=== PATIENT | male | born 1940 | race Caucasian/White ===

== ENCOUNTER 2019-07-30 15:22 | Inpatient (IN) | payer MEDICARE ==
[~2019-07-30] VITALS: Ht 180.3 cm; Wt 89.8 kg
--- NOTE | 2019-07-30 15:36 | NUR ---
PT IS IN ROOM #1B. DR STAFFORD EVALUATED THE PT. SUICIDAL PT PROTOCOL STARTED .
[2019-07-30 16:13] LABS: BASOPHILS % (AUTO) 0.6 % (0.0-2.0); EOSINOPHILS % (AUTO) 0.4 % (0.0-7.0); HEMATOCRIT 39.7 % (36.7-47.1); HEMOGLOBIN 13.4 g/dL (12.5-16.3); LYMPHOCYTES % (AUTO) 12.5 % (20.5-51.5); MEAN CORPUSCULAR HEMOGLOBIN 31.8 uug (23.8-33.4); MEAN CORPUSCULAR HGB CONC 34 g/dL (32.5-36.3); MEAN CORPUSCULAR VOLUME 93.8 fL (73.0-96.2); MONOCYTES # (AUTO) 0.7 K/uL (2.0-10.0); MONOCYTES % (AUTO) 8.7 % (0.0-11.0); NEUTROPHILS # (AUTO) 5.9 K/uL (1.8-8.9); NEUTROPHILS % (AUTO) 77.8 % (38.5-71.5); PLATELET COUNT (AUTO) 214 K/uL (152-348); RED BLOOD CELL COUNT(AUTO) 4.23 MIL/uL (4.06-5.63); WHITE BLOOD COUNT (AUTO) 7.6 K/uL (3.6-10.2)
[2019-07-30 16:21] LABS: CARBON DIOXIDE 29 mmol/L (21-32); CHLORIDE 106 mmol/L (98-107); CREATININE 1.4 mg/dL (0.6-1.3); GLUCOSE 176 mg/dL (74-106); POTASSIUM 3.8 mmol/L (3.5-5.1); UREA NITROGEN, BLOOD 23 mg/dL (7-18)
[2019-07-30 16:32] LABS: ETHANOL < 3 MG/DL (0-0)
[2019-07-30 16:36] LABS: BILIRUBIN,TOTAL 0.5 mg/dL (0.2-1.0)
[2019-07-30 16:37] LABS: ALANINE AMINOTRANSFERASE 30 U/L (16-63); ALKALINE PHOSPHATASE 116 U/L (50-136); ASPARTATE AMINOTRANSFERASE 22 U/L (15-37); TOTAL PROTEIN, SERUM 6.8 g/dL (6.4-8.2)
--- NOTE | 2019-07-30 16:43 | NUR ---
PT IS RESTING IN BED COMFORTABLY. NO S/S OF ACUTE DISTRESS AT THIS TIME. PT'S SON AT THE BEDSIDE. CONTINUE TO MONITOR THE PT.
[2019-07-30] MEDS ORDERED: GABAPENTIN 100 MG CAPSULE PO ONE (16:45)
[2019-07-30] MEDS ORDERED: GABAPENTIN 100 MG CAPSULE ONE (16:54)
[2019-07-30 16:57] LABS: THYROID STIMULATING HORMONE 1.137 mIU/mL (0.358-3.740)
[2019-07-30 17:49] LABS: BILIRUBIN,DIRECT < 0.1 mg/dL (0.0-0.2)
--- NOTE | 2019-07-30 18:02 | NUR ---
CALLED [facility] FOR PSYCH EVAL.
[2019-07-30 19:00] LABS: *BILIRUBIN,URIN NEGATIVE (NEGATIVE); *BLOOD, URINE NEGATIVE (NEGATIVE); *CLARITY,URINE CLEAR (CLEAR); *COLOR,URINE YELLOW (YELLOW); *KETONES,URINE NEGATIVE (NEGATIVE); *UROBILINOGEN,URINE 0.2 E.U./dl (NORMAL); LEUKOCYTE ESTERASE ,URINE NEGATIVE (NEGATIVE); NITRITE, URINE NEGATIVE (NEGATIVE); PH,URINE 8.5 (5.0-8.0); UGLUCOSE NEGATIVE (NEGATIVE)
--- NOTE | 2019-07-30 19:10 | NUR ---
Gladis Bravo arrived to ER for pt psych eval.
[2019-07-30 19:24] LABS: *AMPHETAMINE, URINE NEGATIVE (NEGATIVE); *BARBITURATE, URINE NEGATIVE (NEGATIVE); *CANNABINOID, URINE NEGATIVE (NEGATIVE); *COCCAINE, URINE NEGATIVE (NEGATIVE); *OPIATE, URINE NEGATIVE (NEGATIVE); *PHENCYCLIDINE SCREEN,URINE NEGATIVE (NEGATIVE)
--- NOTE | 2019-07-30 20:02 | NUR ---
Report given to Fadia ADAN MHU.
[2019-07-30] MEDS ORDERED: ACETAMINOPHEN 325 MG TABLET PO PRN (20:15)
[2019-07-30] MEDS ORDERED: MAG HYDROX/AL HYDROX/SIMETH 30 ML LIQUID UDC PO PRN (20:15)
[2019-07-30] MEDS ORDERED: BLOOD SUGAR DIAGNOSTIC 1 EACH STRIP VI ONE ×2 (20:15→20:30)
[2019-07-30] MEDS ORDERED: MAGNESIUM HYDROXIDE 30 ML LIQUID UDC PO PRN (20:15)
[2019-07-30 20:30] VITALS: BP 161/86
[2019-07-30] MEDS: TEMAZEPAM 7.5 MG CAPSULE PO PRN (21:46)
--- NOTE | 2019-07-30 22:00 | NUR ---
GPS: Admitted to unit voluntarily earlier a 79 yr.old male under the care of /Russell Riggs who was medically cleared in the E.R. Pt.is A/Ox4,coming in for anxiety,depression with suicidal ideation. Contracts for safety at this time. Unable to say stressors at this time. Personal belongings/skin assessment completed. Pt.is sad,anxious,depressed. Re-assured by staff prn. Pt's son "Alex" made aware of pt's admission to the unit with pt's consent. Pt's handbook given,unit rules explained. Safety emphasized.Restoril 7.5mg given as requested by pt.for insomnia. Will continue to monitor.
[2019-07-31 07:04] LABS: BILIRUBIN,TOTAL 0.6 mg/dL (0.2-1.0); CREATININE 1.3 mg/dL (0.6-1.3); POTASSIUM 3.9 mmol/L (3.5-5.1); TOTAL PROTEIN, SERUM 5.9 g/dL (6.4-8.2)
[2019-07-31 07:30] VITALS: BP 123/68
[2019-07-31] MEDS ORDERED: METOPROLOL SUCCINATE XL 50 MG TAB.SR.24H PO SCH (09:00)
[2019-07-31] MEDS ORDERED: Medication Not On Formulary EA (Irbesartan (Avapro) 150 MG) PO SCH (09:00)
[2019-07-31] MEDS: METOPROLOL TARTRATE 50 MG TABLET PO SCH ×2 (09:22→20:35)
[2019-07-31] MEDS: AMLODIPINE 5 MG TABLET PO SCH (09:23)
[2019-07-31] MEDS: VALSARTAN 80 MG TABLET PO SCH (09:23)
[2019-07-31] MEDS: LORAZEPAM 1 MG TABLET PO PRN (10:54)
[2019-07-31 16:00] VITALS: BP 114/69
[2019-07-31] MEDS ORDERED: WARFARIN SODIUM 5 MG TABLET PO ONE (17:00)
[2019-07-31] MEDS ORDERED: WARFARIN SODIUM 5 MG TABLET PO SCH (17:00)
[2019-07-31 20:24] VITALS: BP 141/65
[2019-07-31] MEDS: MIRTAZAPINE 15 MG TABLET PO SCH (20:34)
[2019-07-31] MEDS: TAMSULOSIN HCL 0.4 MG CAP.SR.24H PO SCH (20:34)
[2019-07-31] MEDS: TEMAZEPAM 7.5 MG CAPSULE PO PRN (21:43)
--- NOTE | 2019-08-01 06:44 | NUR ---
Pt took all medications last night. Had restoril PRN. Slept 9.30 hrs.
[2019-08-01 07:30] VITALS: BP 112/54
[2019-08-01] MEDS: METOPROLOL TARTRATE 50 MG TABLET PO SCH ×2 (08:40→20:33)
[2019-08-01] MEDS: AMLODIPINE 5 MG TABLET PO SCH (08:40)
[2019-08-01] MEDS: buPROPion 75 MG TABLET PO SCH (08:40)
[2019-08-01] MEDS: VALSARTAN 80 MG TABLET PO SCH (08:41)
--- NOTE | 2019-08-01 09:37 | NUR ---
GPS/NSG IM ADMINISTERED ORDERED PER RIESE PROTOCOL ON RT DELTOID. WILL CONTINUE TO MONITOR FOR SEDATION WELL FOR ADVERSE REACTIONS. LAST OBSERVED LYING IN BED AWAKE.
[2019-08-01] MEDS: LORAZEPAM 1 MG TABLET PO PRN (11:07)
[2019-08-01 16:00] VITALS: BP 103/54
[2019-08-01] MEDS: WARFARIN SODIUM 5 MG TABLET PO SCH (16:54)
[2019-08-01 20:00] VITALS: BP 122/58
[2019-08-01] MEDS: MIRTAZAPINE 15 MG TABLET PO SCH (20:33)
[2019-08-01] MEDS: TAMSULOSIN HCL 0.4 MG CAP.SR.24H PO SCH (20:33)
[2019-08-01] MEDS: TEMAZEPAM 7.5 MG CAPSULE PO PRN (22:18)
[2019-08-02 07:30] VITALS: BP 114/53
[2019-08-02 07:58] LABS: EOSINOPHILS # (AUTO) 0.2 K/uL (0.0-0.7); LYMPHOCYTES # (AUTO) 1.4 K/uL (20.0-40.0); LYMPHOCYTES % (AUTO) 27.6 % (20.5-51.5); MEAN CORPUSCULAR HGB CONC 34 g/dL (32.5-36.3); MONOCYTES # (AUTO) 0.7 K/uL (2.0-10.0); NEUTROPHILS # (AUTO) 2.8 K/uL (1.8-8.9); RED BLOOD CELL COUNT(AUTO) 3.52 MIL/uL (4.06-5.63)
[2019-08-02 08:08] LABS: BASOPHILS % (AUTO) 0.6 % (0.0-2.0); EOSINOPHILS % (AUTO) 3.2 % (0.0-7.0); MEAN CORPUSCULAR HEMOGLOBIN 32.3 uug (23.8-33.4); NEUTROPHILS % (AUTO) 55.6 % (38.5-71.5)
[2019-08-02 08:09] LABS: HEMOGLOBIN 11.4 g/dL (12.5-16.3); WHITE BLOOD COUNT (AUTO) 5.1 K/uL (3.6-10.2)
[2019-08-02 08:10] LABS: HEMATOCRIT 33.1 % (36.7-47.1); PLATELET COUNT (AUTO) 156 K/uL (152-348)
[2019-08-02 08:15] LABS: CREATININE 1.2 mg/dL (0.6-1.3); MAGNESIUM 2.1 mg/dL (1.8-2.4); POTASSIUM 3.6 mmol/L (3.5-5.1)
[2019-08-02] MEDS: buPROPion 75 MG TABLET PO SCH (08:53)
[2019-08-02] MEDS: METOPROLOL TARTRATE 50 MG TABLET PO SCH ×2 (08:54→20:07)
[2019-08-02] MEDS: AMLODIPINE 5 MG TABLET PO SCH (08:54)
[2019-08-02] MEDS: VALSARTAN 80 MG TABLET PO SCH (08:54)
--- NOTE | 2019-08-02 10:19 | NUR ---
Social Work Initial Discharge Plan: Patient currently resides with his son Alex Capellan ([phone]) [address] [facility], [place] [address]. Patient has his own apartment in [place], [place] where he has been living on his own for 20 years. Patient ideally wants to go back to his own home. SW will continue to work with patient, family, and MD to ensure a safe and proper discharge plan.
[2019-08-02] MEDS: LORAZEPAM 1 MG TABLET PO PRN (10:43)
[2019-08-02 15:23] VITALS: BP 122/61
[2019-08-02] MEDS: WARFARIN SODIUM 5 MG TABLET PO SCH (17:03)
[2019-08-02 20:00] VITALS: BP 137/65
[2019-08-02] MEDS: TAMSULOSIN HCL 0.4 MG CAP.SR.24H PO SCH (20:04)
[2019-08-02] MEDS: MIRTAZAPINE 15 MG TABLET PO SCH (20:04)
[2019-08-02] MEDS: TEMAZEPAM 7.5 MG CAPSULE PO PRN (22:13)
[2019-08-03 07:55] VITALS: BP 136/52
[2019-08-03] MEDS: buPROPion 75 MG TABLET PO SCH (08:14)
[2019-08-03] MEDS: VALSARTAN 80 MG TABLET PO SCH (08:14)
[2019-08-03] MEDS: METOPROLOL TARTRATE 50 MG TABLET PO SCH ×2 (08:14→20:09)
[2019-08-03] MEDS: AMLODIPINE 5 MG TABLET PO SCH (08:15)
[2019-08-03] MEDS: LORAZEPAM 1 MG TABLET PO PRN (09:42)
--- NOTE | 2019-08-03 11:39 | NUR ---
Social Work Individual Therapy Note: SW met with patient and provided brief individual counseling. SW assessed patient for suicidal ideation. Patient denies suicidal thoughts but he admits to continue to feel depressed and having headaches. SW explored patient's feelings and provided guidance and reassurance. SW offered patient Intensive Outpatient program options for mental health individual and group counseling and psychiatry follow ups at [facility] ([phone]) and [facility] ([phone]). SW explained the benefits of each program and the patient was happy to know this resource is available for him. Patient would like to participate in the [facility] IOP since they provide transportation and he feels safer knowing this. SW will continue to meet with patient and provide ongoing support.
--- NOTE | 2019-08-03 11:52 | NUR ---
Social Work Coordination of Care: Collection Correspondent referred patient to [facility] spoke with Uzair Stevens ([phone]) and [facility] spoke with Simran ([phone]). Both programs offer psychiatry follow up, psychologist for individual and group therapy.
[2019-08-03 15:25] VITALS: BP 105/49
[2019-08-03] MEDS: WARFARIN SODIUM 5 MG TABLET PO SCH (17:07)
[2019-08-03 19:46] VITALS: BP 111/58
[2019-08-03] MEDS: TAMSULOSIN HCL 0.4 MG CAP.SR.24H PO SCH (20:09)
[2019-08-03] MEDS: NORTRIPTYLINE HCL 10 MG CAPSULE PO SCH (20:10)
[2019-08-03] MEDS: ATORVASTATIN 10 MG TABLET PO SCH (21:33)
[2019-08-04 07:30] VITALS: BP 106/50
[2019-08-04] MEDS: buPROPion 75 MG TABLET PO SCH (08:18)
[2019-08-04] MEDS: METOPROLOL TARTRATE 50 MG TABLET PO SCH ×2 (09:00→20:16)
[2019-08-04] MEDS: AMLODIPINE 5 MG TABLET PO SCH (09:00)
[2019-08-04] MEDS: VALSARTAN 80 MG TABLET PO SCH (09:00)
[2019-08-04] MEDS: LORAZEPAM 1 MG TABLET PO PRN (11:11)
[2019-08-04 16:00] VITALS: BP 129/66
[2019-08-04] MEDS: WARFARIN SODIUM 5 MG TABLET PO SCH (17:20)
[2019-08-04 20:00] VITALS: BP 115/75
[2019-08-04] MEDS: TAMSULOSIN HCL 0.4 MG CAP.SR.24H PO SCH (20:17)
[2019-08-04] MEDS: ATORVASTATIN 10 MG TABLET PO SCH (20:17)
[2019-08-04] MEDS: NORTRIPTYLINE HCL 10 MG CAPSULE PO SCH (20:19)
--- NOTE | 2019-08-04 22:24 | NUR ---
Patient denies SI will continue to monitor, remains in room. Patient complaint with medication. Patient in no apparent distress will continue to monitor. Patient denies pain at this time, will conitnue to monitor. No aggressive or combative behavior noted. Bed remains in lowest position, bed locked, and bed alarm on while in bed.
[2019-08-04] MEDS: TEMAZEPAM 7.5 MG CAPSULE PO PRN (23:40)
[2019-08-05 07:30] VITALS: BP 122/62
[2019-08-05] MEDS: VALSARTAN 80 MG TABLET PO SCH (08:20)
[2019-08-05] MEDS: METOPROLOL TARTRATE 50 MG TABLET PO SCH ×2 (08:21→20:16)
[2019-08-05] MEDS: AMLODIPINE 5 MG TABLET PO SCH (08:22)
[2019-08-05] MEDS: buPROPion 75 MG TABLET PO SCH (08:22)
[2019-08-05] MEDS: LORAZEPAM 1 MG TABLET PO PRN ×2 (10:27→19:13)
--- NOTE | 2019-08-05 12:54 | NUR ---
Gps/Motorcycle Technician-Called 3rd floor . report given to Rn October. Patient was well informed, Patient left unit w/o any complaints , cooperative with staff providing his care.
[2019-08-05 13:00] VITALS: BP 145/75
--- NOTE | 2019-08-05 13:00 | NUR ---
RECEIVED PATIENT FROM MENTAL HEALTH UNIT, PATIENT IS VOLUNTARY WITH DIAGNOSIS OF PSYCHOSIS, PATIENT IS COOPERATIVE AND PLEASANT. NO SI/HI NOTED, PATIENT IS AMBULATORY AND ABLE TO MAKE NEEDS KNOWN. PROVIDED SAFETY AND COMFORT AT ALL TIMES,. WILL CONTINUE TO MONITOR.
[2019-08-05 15:14] VITALS: BP 123/66
[2019-08-05] MEDS: WARFARIN SODIUM 5 MG TABLET PO SCH (17:12)
--- NOTE | 2019-08-05 19:17 | NUR ---
gisela alert and oriented , verbalized domo safety and denies and SI/HI , will continue to monitor.
--- NOTE | 2019-08-05 19:20 | NUR ---
Received patient lying in bed. AAOx4. In no acute distress. Denies any SI/HI. Calm and pleasant. Denies any pain or SOB. Needs assessed and attended to. Safety measure initiated. Continue to monitor.
[2019-08-05] MEDS: NORTRIPTYLINE HCL 10 MG CAPSULE PO SCH (20:16)
[2019-08-05] MEDS: TAMSULOSIN HCL 0.4 MG CAP.SR.24H PO SCH (20:16)
[2019-08-05] MEDS: ATORVASTATIN 10 MG TABLET PO SCH (20:16)
[2019-08-06 04:15] VITALS: BP 134/76
--- NOTE | 2019-08-06 06:15 | NUR ---
Patient slept about 9 hours.
[2019-08-06 07:51] VITALS: BP 138/76
[2019-08-06] MEDS: VALSARTAN 80 MG TABLET PO SCH (08:02)
[2019-08-06] MEDS: AMLODIPINE 5 MG TABLET PO SCH (08:03)
[2019-08-06] MEDS: METOPROLOL TARTRATE 50 MG TABLET PO SCH (08:03)
[2019-08-06] MEDS: buPROPion 75 MG TABLET PO SCH (08:35)
--- NOTE | 2019-08-06 10:44 | NUR ---
Social Work Discharge Note: Patient will be discharged home today [address] [place] [address] ([phone]). The patient will be picked up by his son, Alex Capellan ([phone]) at 2:30pm today, who is aware and agreeable with discharge plans. Patient is aware and agreeable with discharge plans. Patient presents with withdrawn mood and flat affect. Patient denies suicidal or homicidal ideation. Patient will be following up with his primary care physician Rebeca Kothari [address] [place] [address] ([phone]) and has an appointment scheduled on , August 12, 2019 at 1pm. Patient is referred to [facility] for Intensive Outpatient Program several times a week [address] [place] [address] ([phone]). Patient will be following up with Psychiatrist Dr. Schreiber and will be seeing a psychologist for individual and group counseling, Dr. Gage. Patient was also provided with outpatient mental health resources to [facility] Crisis Line , and the National Suicide Prevention Lifeline .
[2019-08-06 11:54] VITALS: BP 121/58
--- NOTE | 2019-08-06 14:48 | NUR ---
caisson worker met with patient for brief individual therapy regarding stress management. Patient presented with suicidal ideation upon admission, but currently denies. caisson worker increased awareness surrounding positive reinforcement. Patient stated that he has social support and his son has been his big social support. Patient stated that he is feeling better at the unit. caisson worker helped patient identify his support system when feeling stressed. *No group being held due to coronavirus precautions*
--- NOTE | 2019-08-06 15:30 | NUR ---
dc orders received noted and carried out,dc instruction and education given to the pt,pt said he will follow up with his dr ,pt left the facility with his in stable condition
[2019-08-06] MEDS ORDERED: NORTRIPTYLINE HCL 10 MG CAPSULE PO SCH (21:00)
[2019-08-07] MEDS ORDERED: buPROPion SR 100 MG TABLET.SA PO SCH (09:00)
== END 2019-08-06 15:33 | disposition home or self-care (01) | DRG 885 ==
LOC: ER 15:31 → GPS 20:10 → MEDSURG3 08-05 13:05 → GPSOV3 08-05 13:20
PROVIDERS: ADMIT Psychiatry & Neurology Psychiatry; ATTEND Internal Medicine
DX: F33.2 Major depressive disorder, recurrent severe without psychotic features (principal); N17.0 Acute kidney failure with tubular necrosis; D68.59 Other primary thrombophilia; F41.9 Anxiety disorder, unspecified; I48.91 Unspecified atrial fibrillation; Z74.09 Other reduced mobility; N40.0 Benign prostatic hyperplasia without lower urinary tract symptoms; E78.5 Hyperlipidemia, unspecified; Z86.73 Personal history of transient ischemic attack (TIA), and cerebral infarction without residual deficits; Z79.01 Long term (current) use of anticoagulants; I11.9 Hypertensive heart disease without heart failure; E11.9 Type 2 diabetes mellitus without complications; Z79.899 Other long term (current) drug therapy; E86.9 Volume depletion, unspecified; D64.9 Anemia, unspecified; Z85.46 Personal history of malignant neoplasm of prostate; Z79.818 Long term (current) use of other agents affecting estrogen receptors and estrogen levels; F03.90 Unspecified dementia, unspecified severity, without behavioral disturbance, psychotic disturbance, mood disturbance, and anxiety; C67.9 Malignant neoplasm of bladder, unspecified
CPT/HCPCS: 36415; 70030-TC; 70450; 71045; 80307; 83735; 84100; 84443; 85025; 85610; 85730; 87086; 93005; 93880; A4663; G0480